=== PATIENT | female | born 1990 | race Hispanic/Latino ===

== ENCOUNTER 2018-03-02 23:44 | Emergency (ER) | payer OTHER ==
[2018-03-03] MEDS ORDERED: KETOROLAC TROMETHAMINE 30MG/ML ONE (00:41)
== END 2018-03-03 02:20 | disposition home or self-care (01) ==
LOC: EDH 23:44
DX: S93.401A Sprain of unspecified ligament of right ankle, initial encounter (principal); I10 Essential (primary) hypertension; X58.XXXA Exposure to other specified factors, initial encounter; Y93.89 Activity, other specified; Y92.89 Other specified places as the place of occurrence of the external cause; Y99.8 Other external cause status
CPT/HCPCS: 73600; 96372; 99284; J1885